=== PATIENT | male | born 1990 | race Caucasian/White ===

== ENCOUNTER 2023-08-02 08:43 | Emergency (ER) | payer MEDICAID, OTHER ==
[~2023-08-02] VITALS: Ht 172.7 cm; Wt 73.0 kg
[2023-08-02 08:52] VITALS: BP 133/73; PULSE 80; RESP 18; O2SAT 99
== END 2023-08-02 09:40 | disposition left against medical advice (07) ==
LOC: EDBD 08:43 → ER 08:43
DX: M79.601 Pain in right arm (principal); R20.0 Anesthesia of skin; Z53.21 Procedure and treatment not carried out due to patient leaving prior to being seen by health care provider

== ENCOUNTER 2023-08-02 10:54 | Emergency (ER) | payer MEDICAID ==
[~2023-08-02] VITALS: Ht 175.3 cm; Wt 170.0 kg
[2023-08-02] MEDS: HYDROcodone-ACET 10/325MG TAB PO ONE (11:41)
[2023-08-02 13:37] VITALS: O2SAT 96
[2023-08-02 14:13] VITALS: BP 100/55; PULSE 72; RESP 15; TEMP 98.2; O2SAT 97
== END 2023-08-02 14:48 | disposition short-term general hospital (02) ==
LOC: ER 11:05
DX: S12.490A Other displaced fracture of fifth cervical vertebra, initial encounter for closed fracture (principal); S12.590A Other displaced fracture of sixth cervical vertebra, initial encounter for closed fracture; S80.212A Abrasion, left knee, initial encounter; S80.211A Abrasion, right knee, initial encounter; S40.811A Abrasion of right upper arm, initial encounter; F15.90 Other stimulant use, unspecified, uncomplicated; V49.59XA Passenger injured in collision with other motor vehicles in traffic accident, initial encounter; Y93.89 Activity, other specified; Y92.89 Other specified places as the place of occurrence of the external cause; Y99.8 Other external cause status
CPT/HCPCS: 70450; 71046; 72125; 73030; 99285; L0120